=== PATIENT | male | born 1985 | race Hispanic/Latino ===

== ENCOUNTER 2024-02-25 00:12 | Emergency (ER) | payer OTHER ==
[~2024-02-25] VITALS: Ht 177.8 cm; Wt 94.8 kg
[2024-02-25] MEDS ORDERED: CEPH500B PO (01:46)
[2024-02-25] MEDS ORDERED: NAPR-1180 PO (01:46)
[2024-02-25] MEDS: TETANUS/DIPHTHERIA TOXOID [ADULT] 0.5 ML VIAL IM ONE (02:02)
[2024-02-25 02:10] VITALS: BP 128/88; PULSE 82; RESP 16; O2SAT 99
== END 2024-02-25 02:24 ==
LOC: EDH 00:12 → EEVIPCON 00:12 → EDH 02:24
DX: S50.311A Abrasion of right elbow, initial encounter (principal); V89.2XXA Person injured in unspecified motor-vehicle accident, traffic, initial encounter; Y93.I9 Activity, other involving external motion; Y92.89 Other specified places as the place of occurrence of the external cause; Y99.8 Other external cause status
CPT/HCPCS: 73080; 90471; 90714

== ENCOUNTER 2024-12-28 15:44 | Emergency (ER) | payer SELFPAY ==
[~2024-12-28] VITALS: Ht 177.8 cm; Wt 99.8 kg
[~2024-12-28 15:44] MED LIST: CEPH500B PO; NAPR-1180 PO
--- NOTE | 2024-12-28 17:31 | ERN ---
ED Note History of Present Illness Stated Complaint: MEDICAL CLEARANCE Chief Complaint: Shoulder Injury/Pain Time Seen by MD: 16:30 Time Seen by Midlevel: 16:30 Dictation: The patient is a 39-year-old male who presents to the emergency department in [facility] with PD for right shoulder pain. Patient reports he thinks his shoulder is dislocated and he has a history of right shoulder dislocation back in September. Reports he started to feel pain after he was apprehended by PD. Denies any falls or any other injuries. Patient denies any head trauma, neck pain, abdominal pain back pain or extremity pain. No other injuries reported Allergies: Coded Allergies: No Known Allergies (Unverified Allergy, Unknown, 02/25/24) Home Meds Active Scripts Naproxen (Naprosyn) 500 Mg Tablet, 500 MG PO BIDPC for 10 Days, #20 TAB 0 Refills Prov:ANGELINA REED PAC 02/25/24 Cephalexin Monohydrate (Keflex) 500 Mg Cap, 500 MG PO QID for 7 Days, #28 CAP Prov:ANGELINA REED PAC 02/25/24 Past Medical History Past Medical History: No Pertinent History Surgical History: None Surgical History Other: HERNIA RN Note Reviewed/Agreed w/PFSH: Yes Review of System Dictation Constitutional: Negative for fever,chills, and weight loss Eyes: Negative for injury, pain,redness, and discharge ENT: Negative for injury,pain or swelling Cardiovascular: Negative for chest pain, palpitations, and edema Respiratory: Negative for shortness of breath, cough, and wheezing, Abdomen/GI: Negative for abdominal pain, nausea, vomiting, diarrhea, and constipation Back: Negative for injury and pain : Negative for injury, bleeding and discharge MS/Extremity: Negative for injury and deformity positive for right shoulder pain Skin: Negative for rash, and discoloration Neuro: Negative for headache, weakness, numbness, tingling, and seizure Psych: Negative for suicide ideation, homicidal ideation, and hallucinations Initial Vital Sign VS Vital Signs Date Time Temp Pulse Resp B/P (MAP) Pulse Ox O2 Delivery O2 Flow Rate FiO2 12/28/24 15:54 97.9 87 16 125/95 97 Room Air 0 12/28/24 19:03 21 Physical Exam Dictation Vital Signs reviewed General Appearance: Alert, oriented x 3, no acute distress, well developed, nourished. Head and Face: non-traumatic. Eyes: PERRL, pink conjunctivas, eyelid no trauma, anterior chamber with arcus senilis. Ears: Pinnas intact and no signs of trauma or erythema ear canals clear and no discharge TM no erythema Nose: No discharge, no bleeding. Oropharynx: Mouth normal, tongue pink. pharynx clear,no erythema, tonsils no exudates, no abscesses noted, mucous membrane moist Neck: Supple, non-tender, no thyromegaly, no masses, no JVD, no bruits Breast:Deferred Chest:No tenderness, no crepitus, no paradoxical movement, no retractions Lungs:Clear, well-ventilated, symmetric, no rales, no wheezing, no rhonchi, no stridor, good breath sounds bilaterally Heart: Regular rate, regular rhythm, no murmur, no gallops Vascular: no peripheral edema, radial pulses 3+ bilaterally Abdomen: Soft, positive bowel sounds, nondistended, no guarding, nontender, no rebound, no masses no hepatomegaly, no splenomegaly, no Serrano's sign, no hernias. Rectal: Deferred Genital: Deferred Neurological: Normal speech, motor function intact, sensory function intact Musculoskeletal: Neck nontender, full range of motion, back nontender, full range of motion, Extremities: Right shoulder tenderness, small tenting to right shoulder, cap refill less than 2 seconds, full range of motion to right shoulder Skin: Color pink, dry, no turgor, no rash, no lacerations, no abrasions, no contusions. Lymphatic: Deferred Results (Laboratory/Radiology) Laboratory/Radiology REASON: pain, hx dislocations ORDERING PHYSICIAN: INDIA CUNNINGHAM PROCEDURE: SHOL 2V RT - SHOULDER COMP 2+VWS RT RIGHT SHOULDER RADIOGRAPHS - 2-3 VIEWS INDICATION: Pain COMPARISON: None FINDINGS/IMPRESSION: No evidence for fracture. Glenohumeral alignment is well maintained. Lateral right clavicle is subluxed superiorly from the right acromioclavicular joint by up to 2.5 cm. Labs Reviewed?: Yes ED Course ED Course Orders Procedure Category Date Status Time Shoulder Comp 2+Vws Rt RAD 12/28/24 Resulted 16:36 Ketorolac 60mg/2ml PHA 12/28/24 In Process (Toradol 60mg/2ml) 17:00 Current Medications Medications (Trade) Dose Ordered Sig/Real Route PRN Reason Start Time Stop Time Status Last Admin Dose Admin Ketorolac Tromethamine (toRADol 60MG/ 2ML) 60 mg ONCE IM 12/28/24 17:00 12/28/24 21:00 12/28/24 19:02 Vital Signs Date Time Temp Pulse Resp B/P (MAP) Pulse Ox O2 Delivery O2 Flow Rate FiO2 12/28/24 19:03 97.9 65 17 134/83 98 Room Air* 0 21 12/28/24 15:54 97.9 87 16 125/95 97 Room Air 0 Medical Decision Making MDM The patient is a 39-year-old male who presents to the emergency department in custody with PD for right shoulder pain. Patient reports he thinks his shoulder is dislocated and he has a history of right shoulder dislocation back in September. Reports he started to feel pain after he was apprehended by PD. Denies any falls or any other injuries. Patient denies any head trauma, neck pain, abdominal pain back pain or extremity pain. No other injuries reported Shoulder x-ray showed lateral right clavicle so placed superior from the right upper meal clavicular joint . Patient able to fully move arm with little discomfort, neurovascularly intact. Patient will placed on an arm sling and will be referred to Orthopedic for further management. Patient in no acute distress. Differential diagnosis: Shoulder dislocation, AC joint sprain, humerus fracture Need for hospitalization: Patient does not meet criteria for hospitalization. There are no social concerns with this patient. DX & DISP Disposition: Discharge Departure Impression: Primary Impression: Right shoulder pain Additional Impressions: Acromioclavicular joint injury, Subluxation of acromioclavicular joint Condition: Stable Scripts Ibuprofen (Ibuprofen) 600 Mg Tablet 600 MG PO Q6H PRN for PAIN, #10 TAB Prov: SILVIA CUNNINGHAMLEN ENTRY LEVEL ACCOUNT REPRESENTATIVE 12/28/24 Additional Instructions: Please follow up with the orthopedic as soon as possible. Wear sling and wrist your arm. You may take [id number] Tylenol or Motrin for the pain. FOLLOW-UP WITH PRIMARY CARE PROVIDER IN 1 TO 2 DAYS. TAKE MEDICATIONS DIRECTED HERE IN THE EMERGENCY ROOM. OKAY TO CONTINUE HOME MEDICATIONS UNLESS OTHERWISE DISCUSSED DURING YOUR VISIT IN THE EMERGENCY ROOM TODAY. RETURN TO YOUR NEAREST EMERGENCY ROOM IF SYMPTOMS WORSEN OR IF THERE IS NO IMPROVEMENT. CALL 911 IF YOU NEED IMMEDIATE ASSISTANCE. TAKE TYLENOL OR MOTRIN OV [id number] NEEDED AND IF NO CONTRAINDICATIONS ARE PRESENT. INCREASE ORAL HYDRATION. A WOUND CULTURE OR URINE CULTURE WAS ORDERED HERE IN THE EMERGENCY ROOM DEPARTMENT PLEASE FOLLOW-UP WITH PRIMARY CARE PROVIDER AND ADVISE THEM TO GET REPEAT PORTS FROM OUR FACILITY. IF YOU HAD ANY YARELI WRAP/SPLINTS THAT WERE APPLIED HERE, PLEASE DO NOT REMOVE THEM UNTIL YOU SEE YOUR PRIMARY CARE OR SPECIALTY. Referrals: SELF,REFERRAL (PCP) ANI PIMENTEL MD Time of Disposition: 19:19 I have reviewed the case, and I agree with, Diagnosis and Plan INDIA CUNNINGHAM Dec 28, 2024 17:31
--- NOTE | 2024-12-28 18:58 | HMCIMG ---
RIGHT SHOULDER RADIOGRAPHS - 2-3 VIEWS INDICATION: Pain COMPARISON: None FINDINGS/IMPRESSION: No evidence for fracture. Glenohumeral alignment is well maintained. Lateral right clavicle is subluxed superiorly from the right acromioclavicular joint by up to 2.5 cm.
[2024-12-28] MEDS: ketOROlac 60 MG VIAL (30MG/ML) IM SCH (19:02)
[2024-12-28 19:03] VITALS: BP 134/83; PULSE 65; RESP 17; TEMP 97.8; O2SAT 98
[2024-12-28] MEDS ORDERED: IBUP-2070 PO (19:26)
== END 2024-12-28 19:38 | disposition home or self-care (01) ==
LOC: EEVIPCON 15:44 → EDH 15:44
DX: S43.001A Unspecified subluxation of right shoulder joint, initial encounter (principal); S43.119A Subluxation of unspecified acromioclavicular joint, initial encounter; X58.XXXA Exposure to other specified factors, initial encounter; Y93.89 Activity, other specified; Y92.89 Other specified places as the place of occurrence of the external cause; Y99.8 Other external cause status
CPT/HCPCS: 99284; 73030; 96372; J1885; 96365; 96367; 96375; 96376